=== PATIENT | male | born 1995 | race Caucasian/White ===

== ENCOUNTER 2021-12-22 06:16 | Day surgery (SDC) | payer OTHER ==
[~2021-12-22 06:16] MED LIST: Acetaminophen 325 MG Tab PO SCH; EPINEPHrine 1 MG/ML 30 ML MDV IRR SCH; Lactated Ringers 1,000 ML IV SCH; Lidocaine 1%/Sod Bicarbonate in NS 8.4% 1 ML Syringe IDERM PRN; Pregabalin 25 MG Cap PO SCH; Sodium Chloride 0.9% 10 ML Syringe FLUSH PRN; Sodium Chloride 0.9% 10 ML Syringe FLUSH SCH; oxyCODONE ER 10 MG TAB.ER PO SCH
[2021-12-22] MEDS ORDERED: Ropivacaine 0.5% 5 MG/ML 30 ML SDV ONE (06:25)
[2021-12-22] MEDS ORDERED: fentaNYL 100 MCG/2 ML SDV ONE (06:30)
[2021-12-22] MEDS ORDERED: Midazolam 1 MG/ML 2 ML SDV ONE ×2 (06:30→07:37)
[2021-12-22] MEDS ORDERED: ceFAZolin 1 GM Vial ONE ×2 (06:30→10:34)
[2021-12-22] MEDS ORDERED: Propofol 200 MG/20 ML SDV ONE ×4 (06:30→09:01)
[2021-12-22] MEDS ORDERED: Ondansetron 4 MG/2 ML SDV ONE (06:30)
[2021-12-22] MEDS ORDERED: Lidocaine 1% 4 ML ONE (06:34)
[2021-12-22] MEDS ORDERED: Bupivacaine 0.25% 10 ML SDV ONE (06:53)
[2021-12-22] MEDS ORDERED: Ketorolac 30 MG/ML SDV ONE (08:08)
[2021-12-22] MEDS ORDERED: HYDROmorphone 0.5 MG/0.5 ML Syringe IVPUSH PRN (08:21)
[2021-12-22] MEDS ORDERED: Ondansetron 4 MG/2 ML SDV IVPUSH PRN (08:21)
[2021-12-22] MEDS ORDERED: fentaNYL 100 MCG/2 ML SDV IVPUSH PRN (08:21)
[2021-12-22] MEDS ORDERED: ePHEDrine 50 MG/ML SDV ONE (09:54)
[2021-12-22] MEDS ORDERED: Cyclobenzaprine 10 MG Tab PO PRN (10:17)
[2021-12-22] MEDS ORDERED: oxyCODONE 5 MG Tab PO PRN (10:17)
[2021-12-22] MEDS ORDERED: Lactated Ringers 1,000 ML ONE (10:34)
[2021-12-22] MEDS ORDERED: oxyCODONE 5 MG Tab PO ONE (11:00)
== END 2021-12-22 11:55 | disposition home or self-care (01) ==
LOC: JD.SDS 06:16
PROVIDERS: ATTEND Orthopaedic Surgery
DX: M25.851 Other specified joint disorders, right hip (principal); Z79.899 Other long term (current) drug therapy
CPT/HCPCS: 29914; 76000; 93005; A9270; J0171; J0690; J1885; J2250; J2405; J2704; J2795; J3010; J7120; 01202; 64447; 76942; 93010; J3490